=== PATIENT | female | born 1935 | race Caucasian/White ===

== ENCOUNTER 2017-05-11 11:30 | Inpatient (IN) | payer OTHER ==
[~2017-05-11] VITALS: Ht 144.8 cm; Wt 40.4 kg
[2017-05-11 12:24] VITALS: BP_SYST 111
[2017-05-11 13:10] LABS: BASOPHILS # (AUTO) 0.1 K/uL (0.0-0.2); BASOPHILS % (AUTO) 0.6 % (0.0-2.0); EOSINOPHILS # (AUTO) 0.4 K/uL (0.0-0.4); EOSINOPHILS % (AUTO) 2.3 % (0.0-4.0); HEMATOCRIT 28.3 % (36-48); HEMOGLOBIN 8.7 g/dL (12.0-16.0); LYMPHOCYTES % (AUTO) 25.3 % (20.5-51.5); MEAN CORPUSCULAR HEMOGLOBIN 23 pg (27-31); MEAN CORPUSCULAR HGB CONC 31 % (32-36); MEAN CORPUSCULAR VOLUME 75 fL (79.0-98.0); MONOCYTES # (AUTO) 1.4 K/uL (0.0-1.0); MONOCYTES % (AUTO) 8.5 % (1.7-9.3); NEUTROPHILS % (AUTO) 63.3 % (40.0-70.0); PLATELET COUNT (AUTO) 362 K/uL (130-430); RED BLOOD CELL COUNT(AUTO) 3.78 MIL/uL (4.2-6.2); RED CELL DISTRIBUTION WIDTH 17.5 % (9.0-15.0); WHITE BLOOD COUNT (AUTO) 15.9 K/uL (4.8-10.8)
[2017-05-11 13:16] LABS: ANION GAP 9 (5-15); CALCIUM 8.6 mg/dL (8.4-11.0); CHLORIDE 100 mmol/L (98-107); CREATININE 0.78 mg/dL (0.55-1.30); GLUCOSE 109 mg/dL (70-99); SODIUM SERUM 130 mmol/L (136-145); UREA NITROGEN, BLOOD 16 mg/dL (8-21)
[2017-05-11 13:17] LABS: BILIRUBIN,URINE NEGATIVE (NEGATIVE); BLOOD, URINE NEGATIVE (NEGATIVE); CLARITY/URINE HAZY (CLEAR); COLOR,URINE YELLOW (YELLOW); GLUCOSE,URINE NEGATIVE (NEGATIVE); KETONES,URINE NEGATIVE (NEGATIVE); LEUKOCYTE ESTERASE ,URINE TRACE (NEGATIVE); NITRITE, URINE NEGATIVE (NEGATIVE); PH,URINE 5.5 (5.0-8.0); PROTEIN URINE 1+ (NEGATIVE); UROBILINOGEN,URINE 0.2 (0.2-1.0)
[2017-05-11 13:22] LABS: ALANINE AMINOTRANSFERASE 24 U/L (12-78); ALBUMIN 2.5 g/dL (3.4-4.8); ASPARTATE AMINOTRANSFERASE 24 U/L (10-37); LIPASE 77 U/L (73-393); TOTAL BILIRUBIN 0.4 mg/dL (0.0-1.0)
[2017-05-11 14:10] LABS: BACTERIA,URINE FEW /HPF (None Seen)
[2017-05-11 14:11] LABS: YEAST,URINE Rare /HPF (None Seen)
[2017-05-11] MEDS ORDERED: ACETAMINOPHEN 325 MG TABLET PO PRN (14:45)
[2017-05-11] MEDS ORDERED: MORPHINE 2 MG/ML INJ. SYRINGE IVP PRN (14:45)
[2017-05-11] MEDS ORDERED: LORazepam 2 MG/ML VIAL IVP PRN (15:00)
[2017-05-11] MEDS ORDERED: POTASSIUM CHLORIDE 20 MEQ TAB.PRT.SR PO PRN (15:00)
[2017-05-11] MEDS ORDERED: SIMETHICONE 80 MG TAB.CHEW PO PRN (15:00)
[2017-05-11] MEDS ORDERED: IPRATROPIUM/ALBUTEROL SULFATE 3 ML AMPUL.NEB INH PRN (15:00)
[2017-05-11] MEDS ORDERED: BISACODYL 10 MG/SUPPOSITORY RC PRN (15:00)
[2017-05-11] MEDS ORDERED: ZOLPIDEM TARTRATE 5 MG TABLET PO PRN (15:00)
[2017-05-11 15:26] VITALS: BP_SYST 146
[2017-05-11 15:33] VITALS: BP_SYST 146
[2017-05-11 16:25] LABS: FREE T4 (FREE THYROXINE) 1.5 ng/dl (0.8-1.5); PHOSPHORUS 3.3 mg/dL (2.7-4.5)
[2017-05-11 16:26] LABS: THYROID STIMULATING HORMONE 1.45 uIu/mL (0.36-3.74)
[2017-05-11] MEDS: NACL 0.9% 1,000 ML IV SCH (17:13)
[2017-05-11] MEDS: cefTRIAXone 1 GM IVPB PREMIX 50 ML IV SCH (17:14)
[2017-05-11] MEDS ORDERED: BUDE6HFA INH (18:31)
[2017-05-11] MEDS ORDERED: CHOL100053 PO (18:31)
[2017-05-11] MEDS ORDERED: NORT10CA PO (18:31)
[2017-05-11] MEDS ORDERED: ATEN-41 PO (18:31)
[2017-05-11] MEDS ORDERED: HYDR-1115 PO (18:31)
[2017-05-11] MEDS ORDERED: ALBMDI INH (18:31)
[2017-05-11] MEDS ORDERED: OMEP20CA10 PO (18:31)
[2017-05-11] MEDS ORDERED: LOVA20TA2 PO (18:31)
[2017-05-11] MEDS ORDERED: CETI-101 PO (18:31)
[2017-05-11] MEDS ORDERED: NOR10 PO (18:31)
[2017-05-11] MEDS ORDERED: LISI-600 PO (18:31)
[2017-05-11] MEDS ORDERED: BACL10TA PO (18:31)
[2017-05-11] MEDS ORDERED: ASPI-1063 PO (18:31)
[2017-05-11] MEDS ORDERED: OMEG300C3 PO (18:31)
[2017-05-11] MEDS ORDERED: LEVO88TA5 PO (18:31)
[2017-05-11 20:33] VITALS: BP_SYST 127
[2017-05-11] MEDS: DOCUSATE SODIUM 100 MG CAPSULE PO SCH (22:37)
[2017-05-11] MEDS: LISINOPRIL 20 MG TABLET PO SCH (22:37)
[2017-05-11] MEDS: hydrALAZINE HCL 25 MG TABLET PO SCH (22:38)
[2017-05-11] MEDS: FERROUS SULFATE 325 MG TABLET.DR PO SCH (22:40)
[2017-05-12] VITALS (8 sets, daily range): BP systolic 133–180
[2017-05-12] MEDS: ONDANSETRON HCL 4 MG/2 ML VIAL IVP PRN ×3 (01:36→15:28)
[2017-05-12 07:44] LABS: BASOPHILS # (AUTO) 0.1 K/uL (0.0-0.2); BASOPHILS % (AUTO) 0.6 % (0.0-2.0); EOSINOPHILS # (AUTO) 0.1 K/uL (0.0-0.4); EOSINOPHILS % (AUTO) 0.6 % (0.0-4.0); HEMATOCRIT 29.4 % (36-48); HEMOGLOBIN 9.5 g/dL (12.0-16.0); LYMPHOCYTES # (AUTO) 2.8 K/uL (1.0-5.5); LYMPHOCYTES % (AUTO) 23.2 % (20.5-51.5); MEAN CORPUSCULAR HEMOGLOBIN 24 pg (27-31); MEAN CORPUSCULAR HGB CONC 32 % (32-36); MEAN CORPUSCULAR VOLUME 73 fL (79.0-98.0); MONOCYTES # (AUTO) 0.7 K/uL (0.0-1.0); MONOCYTES % (AUTO) 5.4 % (1.7-9.3); NEUTROPHILS # (AUTO) 8.5 K/uL (1.8-7.7); NEUTROPHILS % (AUTO) 70.2 % (40.0-70.0); PLATELET COUNT (AUTO) 370 K/uL (130-430); RED BLOOD CELL COUNT(AUTO) 4.01 MIL/uL (4.2-6.2); RED CELL DISTRIBUTION WIDTH 17.1 % (9.0-15.0); WHITE BLOOD COUNT (AUTO) 12.2 K/uL (4.8-10.8)
[2017-05-12 08:12] LABS: HEMOGLOBIN A1C 5.2 % (4.8-5.6)
[2017-05-12 08:19] LABS: ANION GAP 8 (5-15); CALCIUM 8.6 mg/dL (8.4-11.0); CHLORIDE 98 mmol/L (98-107); CHOLESTEROL 86 mg/dL (<200); GLUCOSE 112 mg/dL (70-99); HDL CHOLESTEROL 33 mg/dL (>55); LDL CHOLESTEROL 50 mg/dL (<100); PHOSPHORUS 2.6 mg/dL (2.7-4.5); POTASSIUM 3.9 mmol/L (3.5-5.1); SODIUM SERUM 128 mmol/L (136-145); TRIGLYCERIDES 56 mg/dL (30-150); UREA NITROGEN, BLOOD 9 mg/dL (8-21)
[2017-05-12] MEDS: NACL 0.9% 1,000 ML IV SCH (08:27)
[2017-05-12] MEDS: amLODIPine BESYLATE 10 MG TABLET PO SCH (08:28)
[2017-05-12] MEDS: LEVOTHYROXINE SODIUM 0.088 MG TABLET PO SCH (08:29)
[2017-05-12] MEDS: ASPIRIN 81 MG TABLET(ECOTRIN) PO SCH (08:29)
[2017-05-12] MEDS: hydrALAZINE HCL 25 MG TABLET PO SCH ×2 (08:29→21:24)
[2017-05-12] MEDS: SIMVASTATIN 10 MG TABLET PO SCH (08:29)
[2017-05-12] MEDS: LISINOPRIL 20 MG TABLET PO SCH ×2 (08:30→21:26)
[2017-05-12] MEDS: FERROUS SULFATE 325 MG TABLET.DR PO SCH ×2 (08:30→21:25)
[2017-05-12] MEDS: ATENOLOL 25 MG TABLET(TENORMIN) PO SCH (08:31)
[2017-05-12] MEDS: DOCUSATE SODIUM 100 MG CAPSULE PO SCH ×2 (08:31→21:25)
[2017-05-12] MEDS: NORTRIPTYLINE HCL 10 MG CAPSULE PO SCH (08:38)
[2017-05-12] MEDS: LORATADINE 10 MG TABLET PO SCH (08:48)
[2017-05-12 10:13] LABS: T4 (THYROXINE) 7.7 ug/dL (4.5-12.0)
[2017-05-12] MEDS: cefTRIAXone 1 GM IVPB PREMIX 50 ML IV SCH (15:29)
[2017-05-12] MEDS ORDERED: PANTOPRAZOLE SODIUM 40 MG/VIAL (PROTONIX) IVP ONE (16:15)
[2017-05-12] MEDS: FLUCONAZOLE 100 mg/ NS 50 ML IV SCH (17:10)
[2017-05-12] MEDS ORDERED: BACLOFEN 10 MG TABLET PO SCH (18:00)
[2017-05-13 03:55] VITALS: BP_SYST 152
[2017-05-13] MEDS: NACL 0.9% 1,000 ML IV SCH (05:35)
[2017-05-13 07:44] LABS: EOSINOPHILS # (AUTO) 0.1 K/uL (0.0-0.4); EOSINOPHILS % (AUTO) 0.7 % (0.0-4.0); HEMATOCRIT 29.5 % (36-48); HEMOGLOBIN 9.4 g/dL (12.0-16.0); LYMPHOCYTES # (AUTO) 3.9 K/uL (1.0-5.5); LYMPHOCYTES % (AUTO) 26.2 % (20.5-51.5); MEAN CORPUSCULAR HEMOGLOBIN 24 pg (27-31); MEAN CORPUSCULAR HGB CONC 32 % (32-36); MONOCYTES % (AUTO) 6.5 % (1.7-9.3); NEUTROPHILS # (AUTO) 9.9 K/uL (1.8-7.7); NEUTROPHILS % (AUTO) 66.6 % (40.0-70.0); PLATELET COUNT (AUTO) 408 K/uL (130-430); RED BLOOD CELL COUNT(AUTO) 3.95 MIL/uL (4.2-6.2); RED CELL DISTRIBUTION WIDTH 16.9 % (9.0-15.0); WHITE BLOOD COUNT (AUTO) 14.9 K/uL (4.8-10.8)
[2017-05-13 07:58] LABS: MEAN CORPUSCULAR VOLUME 75 fL (79.0-98.0)
[2017-05-13 08:11] VITALS: BP_SYST 153
[2017-05-13 08:11] LABS: ALANINE AMINOTRANSFERASE 20 U/L (12-78); ALBUMIN 2.3 g/dL (3.4-4.8); ANION GAP 7 (5-15); ASPARTATE AMINOTRANSFERASE 23 U/L (10-37); CALCIUM 8.5 mg/dL (8.4-11.0); CHLORIDE 99 mmol/L (98-107); CREATININE 0.77 mg/dL (0.55-1.30); GLUCOSE 89 mg/dL (70-99); PHOSPHORUS 3.1 mg/dL (2.7-4.5); POTASSIUM 4.3 mmol/L (3.5-5.1); SODIUM SERUM 131 mmol/L (136-145); TOTAL BILIRUBIN 0.4 mg/dL (0.0-1.0); UREA NITROGEN, BLOOD 7 mg/dL (8-21)
[2017-05-13] MEDS: PANTOPRAZOLE SODIUM 40 MG/VIAL (PROTONIX) IVP SCH (08:25)
[2017-05-13] MEDS: LISINOPRIL 20 MG TABLET PO SCH ×2 (08:25→20:32)
[2017-05-13] MEDS: ATENOLOL 25 MG TABLET(TENORMIN) PO SCH (08:26)
[2017-05-13] MEDS: FERROUS SULFATE 325 MG TABLET.DR PO SCH ×2 (08:26→20:31)
[2017-05-13] MEDS: amLODIPine BESYLATE 10 MG TABLET PO SCH (08:26)
[2017-05-13] MEDS: OMEPRAZOLE 20 MG CAPSULE.DR (PriLOSEC) PO SCH (08:26)
[2017-05-13] MEDS: LORATADINE 10 MG TABLET PO SCH (08:26)
[2017-05-13] MEDS: ASPIRIN 81 MG TABLET(ECOTRIN) PO SCH (08:26)
[2017-05-13] MEDS: hydrALAZINE HCL 25 MG TABLET PO SCH ×2 (08:26→20:31)
[2017-05-13] MEDS: SIMVASTATIN 10 MG TABLET PO SCH (08:27)
[2017-05-13] MEDS: DOCUSATE SODIUM 100 MG CAPSULE PO SCH ×2 (08:27→20:31)
[2017-05-13] MEDS: CHOLECALCIFEROL (VITAMIN D3) 2,000 UNIT TABLET PO SCH (08:27)
[2017-05-13] MEDS: LEVOTHYROXINE SODIUM 0.088 MG TABLET PO SCH (08:27)
[2017-05-13] MEDS: NORTRIPTYLINE HCL 10 MG CAPSULE PO SCH (08:28)
[2017-05-13] MEDS ORDERED: NON-FORMULARY MEDICATION (Omega-3 Fatty Acids (Fish Oil) 300 MG) PO SCH (09:00)
[2017-05-13 12:24] VITALS: BP_SYST 148
[2017-05-13 15:56] VITALS: BP_SYST 130
[2017-05-13] MEDS: cefTRIAXone 1 GM IVPB PREMIX 50 ML IV SCH (16:10)
[2017-05-13] MEDS: FLUCONAZOLE 100 mg/ NS 50 ML IV SCH (17:12)
[2017-05-13 19:00] VITALS: BP_SYST 141
[2017-05-13 20:00] VITALS: BP_SYST 141
[2017-05-14] VITALS: BP_SYST 135
[2017-05-14] MEDS: NACL 0.9% 1,000 ML IV SCH ×2 (03:19→22:57)
[2017-05-14 04:00] VITALS: BP_SYST 132
[2017-05-14 07:28] LABS: BASOPHILS # (AUTO) 0.1 K/uL (0.0-0.2); BASOPHILS % (AUTO) 0.5 % (0.0-2.0); EOSINOPHILS # (AUTO) 0.3 K/uL (0.0-0.4); EOSINOPHILS % (AUTO) 2.1 % (0.0-4.0); HEMATOCRIT 28.5 % (36-48); HEMOGLOBIN 9.4 g/dL (12.0-16.0); LYMPHOCYTES # (AUTO) 3.7 K/uL (1.0-5.5); LYMPHOCYTES % (AUTO) 28.6 % (20.5-51.5); MEAN CORPUSCULAR HEMOGLOBIN 24 pg (27-31); MEAN CORPUSCULAR HGB CONC 33 % (32-36); MEAN CORPUSCULAR VOLUME 74 fL (79.0-98.0); MONOCYTES % (AUTO) 7.9 % (1.7-9.3); NEUTROPHILS # (AUTO) 7.8 K/uL (1.8-7.7); NEUTROPHILS % (AUTO) 60.9 % (40.0-70.0); PLATELET COUNT (AUTO) 405 K/uL (130-430); RED BLOOD CELL COUNT(AUTO) 3.86 MIL/uL (4.2-6.2); RED CELL DISTRIBUTION WIDTH 16.8 % (9.0-15.0); WHITE BLOOD COUNT (AUTO) 12.9 K/uL (4.8-10.8)
[2017-05-14 08:00] LABS: INR 1.1 (0.8-1.2)
[2017-05-14 08:15] VITALS: BP_SYST 136
[2017-05-14 08:25] LABS: ALANINE AMINOTRANSFERASE 18 U/L (12-78); ALBUMIN 2.3 g/dL (3.4-4.8); ANION GAP 11 (5-15); ASPARTATE AMINOTRANSFERASE 21 U/L (10-37); CALCIUM 8.4 mg/dL (8.4-11.0); CHLORIDE 98 mmol/L (98-107); CREATININE 0.89 mg/dL (0.55-1.30); GLUCOSE 69 mg/dL (70-99); PHOSPHORUS 2.7 mg/dL (2.7-4.5); POTASSIUM 4.1 mmol/L (3.5-5.1); SODIUM SERUM 130 mmol/L (136-145); TOTAL BILIRUBIN 0.3 mg/dL (0.0-1.0); UREA NITROGEN, BLOOD 11 mg/dL (8-21)
[2017-05-14] MEDS: LISINOPRIL 20 MG TABLET PO SCH ×2 (09:00→20:06)
[2017-05-14] MEDS: hydrALAZINE HCL 25 MG TABLET PO SCH ×2 (09:00→20:07)
[2017-05-14] MEDS: FERROUS SULFATE 325 MG TABLET.DR PO SCH ×2 (09:00→20:07)
[2017-05-14] MEDS: DOCUSATE SODIUM 100 MG CAPSULE PO SCH ×2 (09:00→20:07)
[2017-05-14] MEDS ORDERED: MAGNESIUM SULFATE 50 ML IV ONE (10:45)
[2017-05-14] MEDS: PANTOPRAZOLE SODIUM 40 MG/VIAL (PROTONIX) IVP SCH (11:00)
[2017-05-14 12:31] VITALS: BP_SYST 139
[2017-05-14] MEDS: CHOLECALCIFEROL (VITAMIN D3) 2,000 UNIT TABLET PO SCH (14:42)
[2017-05-14] MEDS: NORTRIPTYLINE HCL 10 MG CAPSULE PO SCH (14:43)
[2017-05-14] MEDS: OMEPRAZOLE 20 MG CAPSULE.DR (PriLOSEC) PO SCH (14:43)
[2017-05-14] MEDS: ASPIRIN 81 MG TABLET(ECOTRIN) PO SCH (14:43)
[2017-05-14] MEDS: amLODIPine BESYLATE 10 MG TABLET PO SCH (14:43)
[2017-05-14] MEDS: LEVOTHYROXINE SODIUM 0.088 MG TABLET PO SCH (14:43)
[2017-05-14] MEDS: LORATADINE 10 MG TABLET PO SCH (14:43)
[2017-05-14] MEDS: SIMVASTATIN 10 MG TABLET PO SCH (14:44)
[2017-05-14] MEDS: ATENOLOL 25 MG TABLET(TENORMIN) PO SCH (14:44)
[2017-05-14 16:05] VITALS: BP_SYST 130
[2017-05-14] MEDS: cefTRIAXone 1 GM IVPB PREMIX 50 ML IV SCH (16:05)
[2017-05-14 20:00] VITALS: BP_SYST 130
[2017-05-15 00:01] VITALS: BP_SYST 140
[2017-05-15 03:54] VITALS: BP_SYST 146
[2017-05-15 06:47] LABS: BASOPHILS % (AUTO) 0.2 % (0.0-2.0); EOSINOPHILS # (AUTO) 0.3 K/uL (0.0-0.4); EOSINOPHILS % (AUTO) 2.1 % (0.0-4.0); LYMPHOCYTES # (AUTO) 3.1 K/uL (1.0-5.5); MEAN CORPUSCULAR HEMOGLOBIN 24 pg (27-31); MEAN CORPUSCULAR HGB CONC 32 % (32-36); MEAN CORPUSCULAR VOLUME 74 fL (79.0-98.0); MONOCYTES # (AUTO) 1.3 K/uL (0.0-1.0); MONOCYTES % (AUTO) 9.3 % (1.7-9.3); NEUTROPHILS # (AUTO) 8.8 K/uL (1.8-7.7); NEUTROPHILS % (AUTO) 65.4 % (40.0-70.0); PLATELET COUNT (AUTO) 383 K/uL (130-430); RED BLOOD CELL COUNT(AUTO) 3.78 MIL/uL (4.2-6.2); RED CELL DISTRIBUTION WIDTH 16.4 % (9.0-15.0); WHITE BLOOD COUNT (AUTO) 13.5 K/uL (4.8-10.8)
[2017-05-15 07:07] LABS: ALANINE AMINOTRANSFERASE 17 U/L (12-78); ALBUMIN 2.3 g/dL (3.4-4.8); ANION GAP 9 (5-15); ASPARTATE AMINOTRANSFERASE 23 U/L (10-37); BILIRUBIN,DIRECT 0.2 mg/dL (0.0-0.3); CHLORIDE 98 mmol/L (98-107); CREATININE 0.81 mg/dL (0.55-1.30); GLUCOSE 78 mg/dL (70-99); POTASSIUM 3.4 mmol/L (3.5-5.1); SODIUM SERUM 130 mmol/L (136-145); TOTAL BILIRUBIN 0.3 mg/dL (0.0-1.0); UREA NITROGEN, BLOOD 10 mg/dL (8-21)
[2017-05-15 08:00] VITALS: BP_SYST 142
[2017-05-15] MEDS: PANTOPRAZOLE SODIUM 40 MG/VIAL (PROTONIX) IVP SCH (08:39)
[2017-05-15] MEDS: LORATADINE 10 MG TABLET PO SCH (08:40)
[2017-05-15] MEDS: FERROUS SULFATE 325 MG TABLET.DR PO SCH (08:40)
[2017-05-15] MEDS: ASPIRIN 81 MG TABLET(ECOTRIN) PO SCH (08:40)
[2017-05-15] MEDS: DOCUSATE SODIUM 100 MG CAPSULE PO SCH (08:40)
[2017-05-15] MEDS: ATENOLOL 25 MG TABLET(TENORMIN) PO SCH (08:40)
[2017-05-15] MEDS: hydrALAZINE HCL 25 MG TABLET PO SCH (08:41)
[2017-05-15] MEDS: LEVOTHYROXINE SODIUM 0.088 MG TABLET PO SCH (08:41)
[2017-05-15] MEDS: amLODIPine BESYLATE 10 MG TABLET PO SCH (08:42)
[2017-05-15] MEDS: SIMVASTATIN 10 MG TABLET PO SCH (08:42)
[2017-05-15] MEDS: CHOLECALCIFEROL (VITAMIN D3) 2,000 UNIT TABLET PO SCH (08:42)
[2017-05-15] MEDS: LISINOPRIL 20 MG TABLET PO SCH (08:43)
[2017-05-15] MEDS: OMEPRAZOLE 20 MG CAPSULE.DR (PriLOSEC) PO SCH (08:43)
[2017-05-15] MEDS: NORTRIPTYLINE HCL 10 MG CAPSULE PO SCH (09:08)
[2017-05-15] MEDS ORDERED: PIPERACILLIN/TAZO 3.375/DEX-IS 50 ML IV SCH (12:00)
[2017-05-15 12:22] VITALS: BP_SYST 117
[2017-05-15 14:25] VITALS: BP_SYST 117
[2017-05-15 17:08] VITALS: BP_SYST 133
== END 2017-05-15 15:55 | DRG 871 ==
LOC: SED 11:30 → STU 14:56 → SMU 05-12 12:18
PROVIDERS: ADMIT Family Medicine; ATTEND Family Medicine
DX: A41.9 Sepsis, unspecified organism (principal); G93.41 Metabolic encephalopathy; E43 Unspecified severe protein-calorie malnutrition; E87.1 Hypo-osmolality and hyponatremia; T85.628A Displacement of other specified internal prosthetic devices, implants and grafts, initial encounter; B37.49 Other urogenital candidiasis; Z68.1 Body mass index [BMI] 19.9 or less, adult; R26.81 Unsteadiness on feet; M62.81 Muscle weakness (generalized); Y83.6 Removal of other organ (partial) (total) as the cause of abnormal reaction of the patient, or of later complication, without mention of misadventure at the time of the procedure; J44.9 Chronic obstructive pulmonary disease, unspecified; D63.8 Anemia in other chronic diseases classified elsewhere; Z90.49 Acquired absence of other specified parts of digestive tract; E78.5 Hyperlipidemia, unspecified; E03.9 Hypothyroidism, unspecified; I10 Essential (primary) hypertension; Z88.5 Allergy status to narcotic agent; Z79.899 Other long term (current) drug therapy; Z79.82 Long term (current) use of aspirin; Y92.89 Other specified places as the place of occurrence of the external cause
CPT/HCPCS: 36415; 71010; 74000-TC; 74181; 78226; 80048; 80053; 80061; 80076; 81000-TC; 82150-TC; 82977-TC; 83036; 83605; 83690-TC; 83735-TC; 83880; 84100-TC; 84436; 84439; 84443-TC; 84479; 85025; 85610-TC; 85730-TC; 87086; 93005; 99285; A9537; C9113; J0696; J1450; J2405; J2543; J3475; J7030